=== PATIENT | female | born 1985 | race African-American/Black ===

== ENCOUNTER 2020-01-28 06:45 | Emergency (ER) | payer BC ==
[2020-01-28] MEDS ORDERED: NORMAL SALINE 1000 ML 1,000 ML IV ONE (08:09)
[2020-01-28 08:11] LABS: APPEARANCE,URINE CLEAR; BILIRUBIN,URINE NEGATIVE (NEGATIVE); GLUCOSE, URINE 50 mg/dL (NEGATIVE); KETONES,URINE NEGATIVE (NEGATIVE); LEUKOCYTE ESTERASE,URINE NEGATIVE (NEGATIVE); NITRITE,URINE NEGATIVE (NEGATIVE); PROTEIN,URINE 100 mg/dL (NEGATIVE); URINE SPECIFIC GRAVITY 1.011
[2020-01-28 08:12] LABS: COLOR,URINE RED
[2020-01-28 08:40] LABS: ABSOLUTE BASOPHILS # (AUTO) 0.1 10^3/uL (0.0-0.2); ABSOLUTE LYMPHOCYTES (AUTO) 0.9 10^3/uL (0.5-4.7); ABSOLUTE MONOCYTES (AUTO) 0.4 10^3/uL (0.1-1.4); ABSOLUTE NEUT (AUTO) 9.6 10^3/uL (1.7-8.2); BASOPHILS % (AUTO) 0.5 % (0-2); HEMATOCRIT 37.4 % (36.0-47.0); LYMPHOCYTES % (AUTO) 8.1 % (13-45); MEAN CORPUSCULAR HEMOGLOBIN 30.2 pg (27.0-33.4); MEAN CORPUSCULAR HGB CONC 34.8 g/dL (32.0-36.0); MEAN CORPUSCULAR VOLUME 87 fl (80-97); MONOCYTES % (AUTO) 4.1 % (3-13); PLATELET COUNT 204 10^3/uL (150-450); RED CELL DISTRIBUTION WIDTH 15.7 % (11.5-14.0); SEGMENTED NEUTROPHILS % (AUTO) 87.3 % (42-78); TOTAL CELLS COUNTED % (AUTO) 100 %
[2020-01-28] MEDS ORDERED: ONDANSETRON HCL INJ/PF 4 MG/2 ML SDV IV ONE (08:52)
[2020-01-28 08:55] LABS: ALBUMIN 3.4 g/dL (3.5-5.0); ALKALINE PHOSPHATASE 142 U/L (38-126); ANION GAP 8 (5-19); ASPARTATE AMINO TRANSFERASE 46 U/L (14-36); BILIRUBIN,DIRECT 0.7 mg/dL (0.0-0.4); BILIRUBIN,TOTAL 1.1 mg/dL (0.2-1.3); BLOOD UREA NITROGEN 6 mg/dL (7-20); CALCIUM 8.6 mg/dL (8.4-10.2); CARBON DIOXIDE 24 mmol/L (22-30); CHLORIDE 111 mmol/L (98-107); GLUCOSE 93 mg/dL (75-110); POTASSIUM 3.4 mmol/L (3.6-5.0); TOTAL PROTEIN 7.3 g/dL (6.3-8.2)
[2020-01-28 08:58] LABS: ALCOHOL < 10 mg/dL (NONE DETECTED)
[2020-01-28 09:02] LABS: URINE AMPHETAMINES SCREEN NEGATIVE; URINE BARBITURATES SCREEN NEGATIVE; URINE BENZODIAZEPINES SCREEN NEGATIVE; URINE COCAINE SCREEN NEGATIVE; URINE METHADONE SCREEN NEGATIVE; URINE PHENCYCLIDINE SCREEN NEGATIVE
[2020-01-28 09:03] LABS: URINE MARIJUANA (THC) SCREEN UNCONFIRMED POSITIVE
--- NOTE | 2020-01-28 10:45 | ER Document Report ---
Entered by VINCENZO GAGE SCRIBE 01/28/20 0806 Acting as scribe for:OZIEL ASHLEY MD ED GI/ - General Chief Complaint: Nausea/Vomiting/Diarrhea Stated Complaint: NAUSEA/VOMITING Mode of Arrival: Ambulatory Information source: Patient Notes: This 34 year old female patient presents to the ED today with complaints of nausea and vomiting that started around 0400 this morning. Patient also notes right flank pain and RLQ abdominal pain that worsened after vomiting this morning. Patient states that she has had dark colored urine for the last several days which she attributed to decreased water intake; however, this morning, she noticed bright red blood while urinating. Patient mentions that she has lost x100 lbs since her bariatric surgery in 07/2019. Denies fever, chills, hematem esis, diarrhea, or any known COVID exposure. Denies history of kidney stones. - Related Data Allergies/Adverse Reactions: Penicillins Allergy (Verified 01/28/20 07:18) Past Medical History - General Information source: Patient, [facility] Records - Social History Smoking Status: Current Some Day Smoker Smoking Education Provided: No Drug Abuse: Marijuana Lives with: Family Family History: Reviewed & Not Pertinent Patient has suicidal ideation: No Patient has homicidal ideation: No - Past Medical History Cardiac Medical History: Reports: Hx Hypertension Past Surgical History: Reports: Hx Gastric Bypass Surgery - 08/08/2019 Review of Systems - Review of Systems Constitutional: See HPI, Weight loss. denies: Chills, Fever EENT: No symptoms reported Cardiovascular: No symptoms reported Respiratory: No symptoms reported Gastrointestinal: See HPI, Abdominal pain, Nausea, Vomiting. denies: Diarrhea, Blood in vomit Genitourinary: See HPI, Flank pain, Hematuria Female Genitourinary: No symptoms reported Musculoskeletal: No symptoms reported Skin: No symptoms reported Hematologic/Lymphatic: No symptoms reported Neurological/Psychological: No symptoms reported -: Yes All other systems reviewed and negative Physical Exam - Vital signs Vitals: Temp Pulse Resp BP Pulse Ox 97.8 F 64 16 141/89 H 100 01/28/20 07:27 01/28/20 07:27 01/28/20 07:27 01/28/20 07:27 01/28/20 07:27 - General General appearance: Alert In distress: None - HEENT Head: Normocephalic, Atraumatic Eyes: Normal Pupils: PERRL - Respiratory Respiratory status: No respiratory distress Chest status: Nontender Breath sounds: Normal Chest palpation: Normal - Cardiovascular Rhythm: Regular Heart sounds: Normal auscultation, S1 appreciated, S2 appreciated Murmur: No Friction rub: No Gallop: None auscultated - Abdominal Inspection: Morbidly Obese Distension: No distension Bowel sounds: Normal Tenderness: Tender - Mild tenderness to palpation of RLQ, Other - Abdomen soft. No: Rebound Organomegaly: No organomegaly - Back Back: Normal, Nontender. No: CVA tenderness - Extremities General upper extremity: Normal inspection General lower extremity: Normal inspection. No: Edema - Neurological Cognition: Normal Orientation: AAOx4 Chrissie Coma Scale Eye Opening: Spontaneous [place] Coma Scale Verbal: Oriented Chrissie Coma Scale Motor: Obeys Commands Chrissie Coma Scale Total: 15 - Psychological Associated symptoms: Normal affect, Normal mood - Skin Skin Temperature: Warm Skin Moisture: Dry Skin Color: Normal Course - Re-evaluation Re-evalutation: 01/28/20 13:50 Patient resting comfortably not showing any signs of distress at this time patient reports that he is urinated more than once since the IV fluid began and there was no active bleeding noted with her urination. - Vital Signs Vital signs: Temp Pulse Resp BP Pulse Ox 97.8 F 64 16 141/89 H 100 01/28/20 07:27 01/28/20 07:27 01/28/20 07:27 01/28/20 07:27 01/28/20 07:27 01/28/20 13:50 Vital signs stable - Laboratory Result Diagrams: 01/28/20 08:24 01/28/20 08:24 Laboratory results interpreted by me: 01/28/20 01/28/20 01/28/20 07:40 08:24 08:24 WBC 11.0 H RDW 15.7 H Lymph % (Auto) 8.1 L Absolute Neuts (auto) 9.6 H Seg Neutrophils % 87.3 H Potassium 3.4 L Chloride 111 H BUN 6 L Direct Bilirubin 0.7 H AST 46 H Alkaline Phosphatase 142 H Albumin 3.4 L Urine Protein 100 H Urine Glucose (UA) 50 H Urine Blood LARGE H Urine Urobilinogen 2.0 H Urinalysis showed large amount of blood in urine otherwise no other acute process. - Diagnostic Test Radiology reviewed: Image reviewed, Reports reviewed Radiology results interpreted by me: 01/28/20 13:51 CT scan of abdomen showed no acute process no evidence for stone no other obstruction noted. Discharge - Discharge Clinical Impression: Nausea and vomiting, Hemorrhagic cystitis Condition: Stable Disposition: HOME, SELF-CARE Instructions: Antinausea Medication ([facility]) Additional Instructions: Urinary Tract Infection Your evaluation indicates that you have a urinary tract infection. This is due to germs growing in the bladder. This is a common problem. This infection usually responds quickly to antibiotics. Your antibiotic should be taken exactly as prescribed. Drink plenty of fluids -- three to four quarts a day. Occasionally, a bladder anesthetic will be prescribed to help stop the feeling of urgency until the antibiotic has a chance to clear the infection. This may cause your urine to be dark orange. Certain urine infections require a culture. If the doctor obtained a culture, the results will be back in two days. You should call to see if a change in treatment is needed. A repeat urinalysis after you finish treatment is often recommended. The physician will let you know if further testing is required. Call the doctor if you develop fever, chills, flank pain, inability to urinate, or blood in the urine. Prescriptions: Sulfamethoxazole/Trimethoprim [Bactrim Ds Tablet] 1 each PO BID #20 tablet Ondansetron [Zofran Odt 4 mg Tablet] 1 - 2 tab PO Q4H PRN #15 tab.rapdis PRN Reason: For Nausea/Vomiting I personally performed the services described in the documentation, reviewed and edited the documentation which was dictated to the scribe in my presence, and it accurately records my words and actions.
--- NOTE | 2020-01-28 11:58 | RADIOLOGY REPORT (SQ) ---
EXAM DESCRIPTION: CT ABD/PELVIS WITH IV ORAL IMAGES COMPLETED DATE/TIME: 01/28/2020 11:35 am REASON FOR STUDY: rightabd pain/hematuria/prior bariactric surgery COMPARISON: None. TECHNIQUE: CT scan of the abdomen and pelvis performed with intravenous and oral contrast using gianna rachell scanning technique with dynamic intravenous contrast injection. Images reviewed with lung, soft t issue, and bone windows. Reconstructed coronal and sagittal MPR images reviewed. Delayed images for e valuation of the urinary system also acquired. All images stored on PACS. All CT scanners at this facility use dose modulation, iterative reconstruction, and/or weight based d osing when appropriate to reduce radiation dose to as low as reasonably achievable (ALARA). [facility]: Dose Right [facility]: CareDose [facility]: Dose Right [facility]: Teradose 4D [facility]: Project Manager CONTRAST TYPE AND DOSE: contrast/concentration: Isovue 350.00 mmol/ml; Total Contrast Delivered: 99. 0 ml; Total Saline Delivered: 61.0 ml RENAL FUNCTION: GFR > 60. RADIATION DOSE: CT Rad equipment meets quality standard of care and radiation dose reduction techniq ues were employed. CTDIvol: 19.2 - 21.1 mGy. DLP: 2034 mGy-cm.. LIMITATIONS: Habitus. FINDINGS: LOWER CHEST: No significant findings. No nodules or infiltrates. LIVER: Markedly fatty. No mass or duct dilatation. SPLEEN: Normal size. No focal lesions. PANCREAS: No masses. No significant calcifications. No adjacent inflammation or peripancreatic fluid collections. Pancreatic duct not dilated. GALLBLADDER: Absent. ADRENAL GLANDS: No significant masses or asymmetry. RIGHT KIDNEY AND URETER: No solid masses. No significant calcification. No hydronephrosis or hydroure ter. LEFT KIDNEY AND URETER: No solid masses. No significant calcification. No hydronephrosis or hydrouret er. AORTA AND VESSELS: No aneurysm. No dissection. Renal arteries, SMA, celiac without stenosis. RETROPERITONEUM: No retroperitoneal adenopathy, hemorrhage or masses. BOWEL AND PERITONEAL CAVITY: Changes of gastric bypass. No bowel obstruction or ascites or abnormal gas or mass or inflammatory change suggested. APPENDIX: Limited visualization. No evidence of acute appendicitis. PELVIS: IUD within the uterus. No pelvic mass or fluid. ABDOMINAL WALL: No masses. No hernias. BONES: No significant or acute findings. OTHER: No other significant finding. IMPRESSION: 1. No acute abdominopelvic abnormality appreciated. Specifically, kidneys look relatively normal wit hout stones are obstruction or abnormal enhancement. 2. Marked hepatic steatosis. TECHNICAL DOCUMENTATION: JOB ID: [id number] Quality ID # [id number]: Final reports with documentation of one or more dose reduction techniques (e.g., Au tomated exposure control, adjustment of the mA and/or kV according to patient size, use of iterative reconstruction technique) 2010 [employer]- All Rights Reserved Reading location - IP/workstation name: [email or web address]
[2020-01-28 14:23] VITALS: BP 138/86
== END 2020-01-28 14:23 | disposition home or self-care (01) ==
LOC: ER 06:45
DX: N30.91 Cystitis, unspecified with hematuria (principal); R11.2 Nausea with vomiting, unspecified; R19.7 Diarrhea, unspecified; R10.31 Right lower quadrant pain; R39.198 Other difficulties with micturition; F17.200 Nicotine dependence, unspecified, uncomplicated; Z88.0 Allergy status to penicillin; I10 Essential (primary) hypertension
CPT/HCPCS: 99285; 96361; 96374; 36415; 80307 ×2; 83605; 83690; 84703; 85025; 80053; 81001; 74177; J2405; J7030